=== PATIENT | female | born 1975 | race Caucasian/White ===

== ENCOUNTER 2024-07-31 09:54 | Outpatient (CLI) | payer BC, SELFPAY ==
--- NOTE | 2024-07-31 10:15 | CRLHL7_ITS ---
For Patients: As a result of the 21st Century Cures Act, medical imaging exams and procedure reports are released immediately into your electronic medical record. You may view this report before your referring provider. If you have questions, please contact your health care provider. ULTRASOUND-GUIDED BREAST BIOPSY OF TWO OR MORE SITES AND POST-BIOPSY DIGITAL MAMMOGRAM FOR BIOPSY MARKER PLACEMENT CLINICAL HISTORY: Indeterminate masses. COMPARISON STUDIES: 07/24/2024. TECHNIQUE: Real-time ultrasound with image documentation was used for targeting the breast lesions. A core needle biopsy system was used to obtain core tissue samples with a 16-gauge device. Post-biopsy CC and ML digital mammograms were obtained to document position of the biopsy marker. CONSENT and TIME OUT: The procedure, risks, and alternatives were explained to the patient and a consent was signed. [place] Protocol was followed including pre-procedure verification that relevant information/documentation was available, reviewed and properly matched to the patient; consent accurate and complete; and equipment and supplies available. Time Out was conducted just prior to starting procedure to verify the four required elements: patient identity, correct side/site marked (if applicable), procedure, relevant images/results properly labeled and displayed (if applicable). PROCEDURE: All biopsies were performed in a similar manner. The patient was positioned supine on the ultrasound table. The breast was prepped with ChloraPrep. 10 cc of 1 percent lidocaine used for local anesthesia. Core samples were obtained. A sterile metal biopsy clip was placed percutaneously to stella the lesion position within the breast. The specimens were placed in 10% formalin and sent to the Pathology Department. Pressure was held on the biopsy site until all bleeding subsided. The skin incision was closed with Steri-Strips. An ice pack was positioned over the biopsy site. The patient tolerated the procedure well. Post-biopsy instructions were reviewed with the patient, and a written copy was given to her. SITE A: LATERALITY: LEFT breast. LESION: Solid heterogeneously hypoechoic mass measures 13 x 10 x 11 millimeters at 1 o`clock 2 cm from the nipple. SUSPICION: High. NUMBER OF SAMPLES: 5. BIOPSY CLIP SHAPE: Oval. PROXIMITY OF CLIP TO TARGET: Within/immediately adjacent to the lesion. SITE B: LATERALITY: LEFT breast. LESION: Solid heterogeneously hypoechoic solid mass measures 2.0 x 0.9 x 1.5 cm at 1 o`clock 4 cm from the nipple. SUSPICION: High. NUMBER OF SAMPLES: 6. BIOPSY CLIP SHAPE: HydroMARK. PROXIMITY OF CLIP TO TARGET: Within/immediately adjacent to the lesion. DISTANCE BETWEEN: Sites A and B: 3 millimeters. IMPRESSION: Ultrasound-guided breast biopsy of two or more sites. When the pathology report is available, an addendum to this report will be made. ACR not applicable Dictated by Mason Valderrama MD @ 07/31/2024 11:20:57 AM jj/Dictated by: Mason Valderrama MD @ 07/31/2024 11:20:00 AM (Electronically Signed)
--- NOTE | 2024-07-31 11:00 | CRLHL7_ITS ---
For Patients: As a result of the Cures Act, medical imaging exams and procedure reports are released immediately into your electronic medical record. You may view this report before your referring provider. If you have questions, please contact your health care provider. SEE ULTRASOUND-GUIDED LEFT BREAST BIOPSY PERFORMED SAME DAY CRL:lauro restrepo/Dictated by: Mason Valderrama MD @ 07/31/2024 11:21:00 AM (Electronically Signed)
== END 2024-07-31 09:55 | disposition home or self-care (01) ==
LOC: US 09:55
PROVIDERS: Visit Provider Obstetrics & Gynecology
DX: N63.20 Unspecified lump in the left breast, unspecified quadrant (principal); C50.912 Malignant neoplasm of unspecified site of left female breast
CPT/HCPCS: 19083; 19084; 77065; A4648; A4649

== ENCOUNTER 2024-08-26 07:39 | Day surgery (SDC) | payer BC, SELFPAY ==
[2024-08-26] VITALS (25 sets, daily range): BP systolic 98–140; BP diastolic 50–78; PULSE 87–132; RESP 11–20; TEMP 36.4–37.4; O2SAT 97–100; BMI 22.8
[2024-08-26 08:16] LABS: Hemoglobin* 13.7 gm/dL (12.0-16.0)
[2024-08-26] MEDS: SODIUM CHLORIDE 0.9 % (FLUSH) 10 ML SYRINGE IVF (08:27)
[2024-08-26] MEDS: LACTATED RINGERS 1000 ML 1,000 ML 100 ML IV ×2 (08:27→10:54)
--- NOTE | 2024-08-26 09:00 | CRLHL7_ITS ---
For Patients: As a result of the Century Cures Act, medical imaging exams and procedure reports are released immediately into your electronic medical record. You may view this report before your referring provider. If you have questions, please contact your health care provider. INDICATION: Invasive lobular carcinoma left breast. Injection for sentinel lymph node scintigraphy. FINDINGS: Informed consent was obtained by the on-site staff. The on-site staff discussed the risks and benefits of the procedure. The patient agreed to proceed. Utilizing sterile technique, 0.8 mCi Tc-99m filtered Sulfur Colloid was injected within an intradermal location superolateral to the left nipple areolar complex. The patient tolerated the injection well. No immediate complications were documented. No subsequent imaging. IMPRESSION: Technically successful left breast injection for sentinel lymph node scintigraphy. CHANDLER LEMA MD Diagnostic/Nuclear Medicine Radiologist [email or web address] KALYANI/[facility] bM/Dictated by: Chandler Lema MD @ 08/26/2024 2:57:00 PM (Electronically Signed)
[2024-08-26 09:02] LABS: HCG Qualitative Serum* Negative (Negative)
--- NOTE | 2024-08-26 09:30 | W.PM.H&PU ---
History & Physical Update History & Physical Update H&P Reviewed and patient assessed: No changes noted
--- NOTE | 2024-08-26 10:16 | W.PM.H&PU ---
History & Physical Update History & Physical Update H&P Reviewed and patient assessed: No changes noted
[2024-08-26] MEDS: ISOSULFAN BLUE 5 ML VIAL 3 ML INJECTION (10:41)
[2024-08-26] MEDS: CEFAZOLIN 1 GM inj IVP (10:53)
--- NOTE | 2024-08-26 10:55 | P.ANES_ITS ---
Anesthesia Charges Start Date/Time Anesthesia Start Date: 08/26/24 Anesthesia Start Time: 10:29 Stop Date/Time Anesthesia Stop Date: 08/26/24 Anesthesia Stop Time: 14:19 Coding CPT Codes CPT Codes: ANESTH SURGERY OF SHOULDER - 81223 ([id number]) P1 - NORMAL HEALTHY PATIENT, QK - BOOTH SUPERVISOR 2-4 CNCRNT ANES PROC, QX - PLANT WRAPPER SVC W/ MED DIRECTION
--- NOTE | 2024-08-26 10:55 | W.ANESCHARGE ---
Anesthesia Charges Start Date/Time Anesthesia Start Date: 08/26/24 Anesthesia Start Time: 10:29 Stop Date/Time Anesthesia Stop Date: 08/26/24 Anesthesia Stop Time: 14:19 Coding CPT Codes CPT Codes: ANESTH SURGERY OF SHOULDER - 20162 ([id number]) P1 - NORMAL HEALTHY PATIENT, QK - INSTITUTIONAL RESEARCH DIRECTOR 2-4 CNCRNT ANES PROC, QX - DIRECTOR OF SERVICES SVC W/ MED DIRECTION
--- NOTE | 2024-08-26 11:17 | P.PCN_ITS ---
Procedure Note Time Seen by Provider: 14:22 Date Seen: 08/26/24 Date of procedure: 08/26/[address] [facility] bill your pro fee for this procedure?: Yes Procedure: Preoperative diagnosis: 49 year-old with menorrhagia and suspected polyp on pelvic ultrasound. Postoperative diagnosis: Same Procedure: Hysteroscopy, Dilation and Curettage using the Truclear incisor Anesthesia: Conscious sedation, paracervical block. Surgeon: Araceli Allan MD Senior Physician: None Estimated blood loss: 10 mL Specimen: Endometrial curettings to pathology. Findings: Exam under anesthesia: Uterus: anteverted position, less than 10 week sized, mobile, with no masses or nodularity palpable. Uterus sounded to 9 cm. No adnexal masses or nodularity palpable. On hysteroscopy: at least 1 polypoid mass within the endometrium otherwise the endometrium and tubal ostia appeared normal. Normal appearing cervix with a nabothian cyst. Procedure: Zari was taken to the operating operating room more conscious sedation was found to be adequate. The patient was placed on in the dorsal lithotomy position and an exam under anesthesia was performed with findings stated above. She was then prepped and draped in a normal sterile manner. A bivalve speculum was placed in the vagina. The cervix appears nulliparous. Otherwise no abnormalities. The paracervical block was placed using 0.5% Marcaine, 5 mL was injected at the 4 and 8 o'clock positions on the cervix. The anterior lip of the cervix was grasped with a single-toothed tenaculum. The cervix dilated to Hegar 6. The uterus sounded to 9 cm. The Truclear hysteroscope was advanced into the uterus. A diagnostic hysteroscopy was performed with normal saline as the insufflation medium. Findings are stated above. The Truclear incisor was then advanced through the camera. The curett age was performed with the incisor over an approximately 2 minutes. The incisor was then removed. The endometrial cavity appeared normal. Saline deficit at the end of the procedure 595 mL. Total saline used 1550 mL. Nothing was needed for hemostasis. The hysteroscope, Allis clamp and speculum were removed from the vaginal canal. The patient tolerated the procedure well. Sponge, lap and instrument counts were correct x2 at the end of the procedure. The patient was taken to the recovery area in stable condition.
--- NOTE | 2024-08-26 11:23 | SUR.OPER ---
PATIENT QUESTIONS ANSWERED SATISFACTORILY PREOPERATIVELY. PATIENT BROUGHT TO OR #1 PER CART. Patient positioned supine on OR #1 bed. The perioperative team supported arms bilaterally on arm boards. Final approval of positioning by surgeon.
--- NOTE | 2024-08-26 11:36 | P.ANES_ITS ---
Anesthesia Charges Start Date/Time Anesthesia Start Date: 08/26/24 Anesthesia Start Time: 10:29 Stop Date/Time Anesthesia Stop Date: 08/26/24 Anesthesia Stop Time: 14:19 Coding CPT Codes CPT Codes: ANESTH SURGERY OF SHOULDER - 77450 ([id number]) P1 - NORMAL HEALTHY PATIENT, QK - LEATHER TOOLER 2-4 CNCRNT ANES PROC, QX - PANTOGRAPH ENGRAVER SVC W/ MED DIRECTION
--- NOTE | 2024-08-26 11:36 | W.ANESCHARGE ---
Anesthesia Charges Start Date/Time Anesthesia Start Date: 08/26/24 Anesthesia Start Time: 10:29 Stop Date/Time Anesthesia Stop Date: 08/26/24 Anesthesia Stop Time: 14:19 Coding CPT Codes CPT Codes: ANESTH SURGERY OF SHOULDER - 39301 ([id number]) P1 - NORMAL HEALTHY PATIENT, QK - IN HOME SALES CONSULTANT 2-4 CNCRNT ANES PROC, QX - PHARMACY CLERK SVC W/ MED DIRECTION
--- NOTE | 2024-08-26 11:37 | P.NB_ITS ---
Nerve Block Nerve Block Time Seen by Provider: 10:45 Date Seen: 08/26/24 Type of block requested by surgeon for post-operative analgesia: intercostal and intercostal add on Side: bilateral Time out performed: Yes Verification of patient name: Yes Verification of date of : Yes Site marking: site marked Name of person performing procedure: Anthony Continuous monitoring Was continuous monitoring of O2 sat, B/P, registered nurse cardiac telemetry, recorded every 15 minutes?: Yes Procedure Checklist: sterile prep, needles and gloves Ultrasound guided. Images saved: Yes Medications given in 5ml increments after negative aspiration: Marcaine %: 0.25 mL: 30 and Exparel mL: 20 Needle gauge: 20 Patient tolerated procedure well: Yes Block Charges Block Charge (with Pro Fee): Intercostal Nerve Block (bilateral ) Use of Ultrasound Machine for Block: Yes- US Guidance/pain block
--- NOTE | 2024-08-26 12:05 | SUR.OPER ---
PT. FAMILY UPDATED BY PHONE CALL AT 12:06.
[2024-08-26] MEDS: KETOROLAC 30 MG/ML inj IVP (13:28)
--- NOTE | 2024-08-26 13:37 | PM.GSPRC ---
Operative Note Date of procedure: 08/26/24 Pre-op diagnosis: Invasive lobular carcinoma, left breast Post-op diagnosis: Same Type of Procedure: 1. Injection of radionucleotide tracer 2. Bilateral mastectomy 3. Left sentinel lymph node biopsy Indications: Patient is a 49-year-old female with recent diagnosis invasive lobular carcinoma of the left breast. Please see consultation note regarding full discussion about different treatment options. Risks and benefits of operative intervention were discussed at length with the patient. Risks included but was not limited to: Bleeding, infection, risk of damage to surrounding structures, possible need for additional procedures and postoperative complications such as pneumonia, pulmonary emboli or SC. we also discussed the risk of lymphedema, nerve injury and flap necrosis. All questions and concerns were addressed with the patient agreeing to proceed. Procedure Description: Prior to proceeding to the operating room a radionucleotide tracer was injected into the left periareolar around 1:00 o'clock. A wheal was formed and bandage placed. The patient was then brought to the operating room and prepped and draped in standard sterile fashion. A timeout was taken for patient safety. I injected 3 cc of lymphazurin blue in the patient's left breast. I then performed breast massage for a period of 5 minutes. Starting on the left side, I performed an elliptical incision on the left breast and started by dissecting the subcutaneous tissues using electrocautery. The breast flaps were created circumferentially, dissecting all the breast tissue off of the overlying skin superiorly up to the clavicle, medially to the lateral border of the sternum, laterally out to the latissimus and inferiorly to the inferior aspect of the breast fold. Once flaps had been raised in all 4 directions down to the level of the fascia, the breast was taken off of the chest wall. I included the fascia in my dissection. The underlying pectoralis muscle was inspected and hemostasis was appreciated. The breast was removed through the incision and marked with a stitch at 12:00 o'clock. It was sent to pathology for immediate assessment, with the tumor identified as a palpable mass and all margins negative I then proceeded to take out the sentinel lymph nodes through the mastectomy incision. Using the Neoprobe I identified the sentinel lymph nodes. All nodes were grossly normal. Nodes were passed off the field as sentinel nodes# 1, and#2 for a frozen evaluation. A total of 3 nodes were found within the specimens, all of which came back as no evidence of malignancy. Background counts in the axilla were low. I then proceeded to perform contralateral prophylactic mastectomy in the same fashion. I made an elliptical incision and started by dissecting the subcutaneous tissues using electrocautery. The breast flaps were created circumferentially, dissecting all the breast tissue off of the overlying skin superiorly up to the clavicle, medially to the lateral border of the sternum, laterally out to the latissimus and inferiorly to the inferior aspect of the breast fold. Once flaps had been raised in all 4 directions down to the level of the fascia, the breast was taken off of the chest wall. I included the fascia in my dissection. The breast was removed through the incision and marked with a single stitch at 12:00 o'clock. It was sent to pathology for immediate assessment, where no obvious abnormalities were identified. A 15 [place] DENEEN drain was placed on the right side and left side. Both drains were secured to the skin with 2 nylon. Hemostasis was assured on both sides. On the left side, with the sentinel nodes were removed the clavipectoral fascia was brought together with 3-0 Vicryl. The elliptical incisions were closed in layers of interrupted 3 0 Vicryl and running 4-0 Monocryl. Steri-Strips and sterile dressings were applied. Findings: Left breast invasive lobular carcinoma. Bilateral mastectomy with negative margins on the left and no abnormalities identified on right. Three sentinel nodes removed from left axilla, all negative for metastatic disease. Anesthesia: GETA Surgeon: Fatoumata Wells MD Estimated blood loss (mL): 50 Additional Specimen Information: 1. Left breast 2. [place] lymph node 1 3. [place] lymph node 2 4. Right breast Condition: stable Disposition: PACU [place] Node Biopsy for Breast Cancer Operation Performed with Curative Intent: Yes Tracers used to Identify sentinel nodes in the upfront surgery (non-neoadjuvant) setting: Dye and Radioactive Tracer Tracers used to identify sentinel nodes in the neoadjuvant setting: N/A All nodes (colored or non-colored) present at the end of a dye filled lymphatic channel were removed: Yes All significantly radioactive nodes were removed: Yes All palpably suspicious nodes were removed: Yes Biopsy proven positive nodes marked with clips prior to chemotherapy were identified and removed: Not Applicable
[2024-08-26] MEDS: BUPIVACAINE 0.5% 30 ML 20 ML INJECTION (13:53)
--- NOTE | 2024-08-26 14:54 | SUR.PHASEI ---
patient met discharge criteria per anesthesia
[2024-08-26] MEDS: HYDROmorphone 0.5 mg/0.5 ml inj IVP (15:20)
[2024-08-26] MEDS: HYDROCODONE-ACETAMIN 5-325 MG 1 TAB PO ×2 (17:07→22:13)
[2024-08-26] MEDS: 0.9 % SODIUM CHLORIDE 1000 ml 1,000 ML IV (17:52)
[2024-08-26 19:02] LABS: HGB WITH REFLEX TO FERRITIN 11.3 (12.0-16.0)
[2024-08-26] MEDS: KETOROLAC 15 MG/ML inj IVP (20:02)
--- NOTE | 2024-08-26 22:56 | PC.NURSE ---
Pt pleasant to care for. at bedside. Pt received 1L bolus for tachycardia which was effective. Afebrile. Pain in controlled well with PRN medications and ice, pt reports 2-5/[address] Wells was consulted due to increased output in DENEEN drains and soiled dressing; no new orders, instructed to call if output increases. Gauze around right DENEEN site was saturated at 1800, changed gauze and remains dry at this time. Pt tolerating oral intake well. Ambulated to bathroom with no complaints.
[2024-08-27] MEDS: HYDROCODONE-ACETAMIN 5-325 MG 1 TAB PO ×3 (01:43→10:38)
[2024-08-27 03:35] VITALS: BP 104/55; PULSE 85; RESP 18; TEMP 36.9; O2SAT 99
[2024-08-27] MEDS: KETOROLAC 15 MG/ML inj IVP ×2 (03:38→09:16)
--- NOTE | 2024-08-27 04:51 | PC.NURSE ---
End of shift report [id number]: VS WNL. Afebrile. Denies nausea. Rates pain a 2 and denies pain meds at this time. Upon reassessment pain was rated a 4, pain meds offered and given.?Ice packs applied to bilat mastectomy sites. Bilat DENEEN drains intact and patent. Left arm restriction band in place. IV is SL in R hand. Ambulates SBA. HOB remains elevated. Jay wrap C/D/I, bruising noted on pts right chest, per evening RN MD Wells updated regarding bruising and slight edema. Urine blue this shift due to lymphazurin blue given in surgery. Call light within reach.?
[2024-08-27 06:58] LABS: Hemoglobin* 10.7 gm/dL (12.0-16.0)
[2024-08-27 08:38] VITALS: BP 110/68; PULSE 90; RESP 16; TEMP 37.2; O2SAT 99
[2024-08-27] MEDS: DOCUSATE SODIUM 100 MG CAPSULE PO (09:16)
--- NOTE | 2024-08-27 09:54 | PC.NURSE ---
Education provided to patient and her . Patient has 4 daughters at home who will support patient with drain and incision care. Patients observed how to strip and drain one drain and performed the procedure on the other drain. Original dressings and wrap that were applied in surgery were removed and redressed per Dr. Wells's request. Right side incision and skin surrounding the incision is quite edematous and bruised. Dr. Wells is aware of this. Continue to monitor drainage output. The output has been slowly decreasing in amount. Patient did get light headed and nauseous during the dressing change. Patient laid down and put feet up and was provided a wet washcloth. This resolved within a few minutes. Patient was able to get up and tolerate the rest of the dressing change. Supplies and a record output sheet was provided to patient. All questions were answered and family feels comfortable helping patient at home.
--- NOTE | 2024-08-27 10:43 | PC.NURSE ---
Patient discharged home with family. All belongings sent with patient. All questions answered. Tolerating a regular diet, voiding, passing flatus, pain under control. Drain and incision education provided. Left via wheelchair escort.
== END 2024-08-27 10:55 | disposition home or self-care (01) ==
LOC: MEDSURG 08-27 09:37 → SS 08-27 11:39 → MEDSURG 08-27 11:40
PROVIDERS: Obstetrics & Gynecology; Visit Provider Surgery
PROC: (CPT 19303; principal; 2024-08-26 09:45)
PROC: 0UDB8ZZ Extraction of Endometrium, Via Natural or Artificial Opening Endoscopic (ICD-10-PCS; CPT 58558; 2024-08-26 09:45)
DX: C50.912 Malignant neoplasm of unspecified site of left female breast (principal); N92.0 Excessive and frequent menstruation with regular cycle; G89.18 Other acute postprocedural pain; N84.0 Polyp of corpus uteri
CPT/HCPCS: 19303; 38500; 58558; 01610; 36415; 38792; 64420; 64421; 76942; 81025; 84703; 85018; 86850; 86900; 86901; 88305; 88307; A9270; A9541; C1782; J0330; J0665; J0666; J0690; J1100; J1171; J1200; J1885; J2250; J2405; J2704; J3010; J7030; J7120

== ENCOUNTER 2024-09-25 14:46 | Outpatient (CLI) | payer BC, SELFPAY ==
--- NOTE | 2024-09-25 | CRLHL7_ITS ---
For Patients: As a result of the Century Cures Act, medical imaging exams and procedure reports are released immediately into your electronic medical record. You may view this report before your referring provider. If you have questions, please contact your health care provider. XR DXA Bone Mineral Density (BMD) Reason for exam: Baseline prior to endocrine therapy. Current height (in): 69. Weight (lb): 150. Menopause age: 49. Ethnicity: White. 1. Have you had a previous hip or vertebral fracture? No. 2. Have you had any fractures during your adult life which did not result from significant trauma (e.g., auto accident)? No. 3. Did either of your parents have a hip fracture? No. 4. Do you smoke? No. 5. Have you ever taken Glucocorticoids? No. 6. Do you have rheumatoid arthritis? No. 7. Do you have secondary osteoporosis? No. 8. Do you drink 3 or more alcoholic drinks per day? No. 9. Are you being treated for osteoporosis? No. 10. Have you ever taken any of the following medications: Actonel, Evista, Fosamax, Miacalcin, Reclast, Boniva, Forteo, HRT (i.e. estrogen/hormone therapy), Protelos, Prolia, Vitamin D, Calcium, other ??? please specify. ANSWER: No. 11. Do you have any of the following medical conditions: Anorexia or bulimia, asthma or emphysema, end stage renal disease, hyperparathyroidism, any seizure disorders, cancer, inflammatory bowel diseases, hysterectomy, other ??? please specify. ANSWER: Yes, breast cancer. 12. What was your maximum height (inches)? 69. 13. Do you perform weight bearing exercise regularly? Yes. 14. Do you regularly consume dairy products? Yes. 15. Do you drink caffeinated beverages? Yes. 16. At what age did your period start? 11. 17. Are you premenopausal? No. 18. How many full term pregnancies have you had? 4. 19. Have you ever missed your period for more than 6 months in a row (not including or menopause)? No. TECHNIQUE: Bone mineral density study was performed using the MC10. FINDINGS: The results of the study expressed as bone mineral density (BMD) are as follows: Lumbar spine L1 to L4: BMD: 0.990 g/cm2. T-score: -0.5. Z-score: 0.2. Neck Left: BMD: 0.800 g/cm2. T-score: -0.3. Z-score: 0.4. Right: BMD: 0.774 g/cm2. T-score: -0.7. Z-score: 0.1. Total Left: BMD: 0.919 g/cm2. T-score: -0.2. Z-score: 0.3. Right: BMD: 0.931 g/cm2. T-score: -0.1. Z-score: 0.4. IMPRESSION: Normal bone density. Mason Valderrama M.D. Diagnostic Radiologist [email or web address] bM/Dictated by: Mason Valderrama MD @ 09/25/2024 3:31:00 PM (Electronically Signed)
== END 2024-09-25 14:47 | disposition home or self-care (01) ==
LOC: RAD 14:47
PROVIDERS: Visit Provider Internal Medicine Hematology & Oncology
DX: C50.912 Malignant neoplasm of unspecified site of left female breast (principal)
CPT/HCPCS: 77080; 99202; 99205; 99214; G0463

== ENCOUNTER 2024-09-30 06:55 | Outpatient (CLI) | payer BC, SELFPAY ==
--- NOTE | 2024-09-30 07:15 | CRLHL7_ITS ---
For Patients: As a result of the Cures Act, medical imaging exams and procedure reports are released immediately into your electronic medical record. You may view this report before your referring provider. If you have questions, please contact your health care provider. Indication: left neck lump Technique: Grayscale and color Doppler ultrasound of the left neck soft tissues performed. Comparison: None Findings: Left cervical lymph node is present measuring 13 x 4 x 8 millimeters. Normal internal blood flow. No abscess or shadowing lesion. Impression: Normal-sized left cervical lymph node. Dictated by Mason Valderrama MD @ 09/30/2024 10:16:00 AM (Electronically Signed)
== END 2024-09-30 06:56 | disposition home or self-care (01) ==
LOC: US 06:57
PROVIDERS: Visit Provider Physician Assistant
DX: R59.0 Localized enlarged lymph nodes (principal)
CPT/HCPCS: 76536

== ENCOUNTER 2024-12-22 07:45 | Outpatient (RCR) | payer BC, SELFPAY ==
--- NOTE | 2024-09-18 14:47 | ONC.NURNOTE ---
Call to patient to discuss plan of care. Patient shares that she weighed her two options and would like to try Tamoxifen. She hopes to allow her body to naturally go through the menopause process. Rx for Tamoxifen sent to pharmacy and patient will begin taking it as directed. Dental clearance form obtained. We will plan to start Zometa at her 3 month follow up visit in December. Patient encouraged to call with questions or concerns.
--- NOTE | 2024-09-24 16:12 | ONC.NURNOTE ---
Patient called today with an update on her condition. She states that she was seeing PT/OT today and she shared with them that she was feeling a hard lump in the base of her left neck. They recommended she call oncology and be evaluated. Patient states she has had a lump here for about a year but it has changed over the past few weeks. It is larger and harder. Patient denies any other symptoms. Patient scheduled to see our PA tomorrow for evaluation.
--- NOTE | 2024-10-01 10:02 | ONC.NURNOTE ---
Patient informed of neck US results. Informed it is a normal cervical lymph node. Patient verbalizes understanding.
[2024-12-22 08:20] LABS: Calcium* 9.2 mg/dL (8.4-10.6); Creatinine* 0.7 mg/dL (0.5-1.5); Est. Creatinine Clearance* 96.99; Estimated Glomerular Filt Rate 105 ml/min
[2024-12-22] MEDS: ZOLEDRONIC ACID 4 MG in 0.9 % SODIUM CHLORIDE 100 ml 100 ML 420 MG IVPB (09:09)
== END 2025-03-10 23:59 | disposition home or self-care (01) ==
LOC: CCIC 07:45
PROVIDERS: Clinical Nurse Specialist; Visit Provider Physician Assistant
DX: C50.412 Malignant neoplasm of upper-outer quadrant of left female breast (principal); Z17.0 Estrogen receptor positive status [ER+]; Z90.13 Acquired absence of bilateral breasts and nipples; Z79.810 Long term (current) use of selective estrogen receptor modulators (SERMs); Z79.83 Long term (current) use of bisphosphonates
CPT/HCPCS: 36415; 82310; 82565; 96374; 99202; 99205; 99214; G0463; J3489

== ENCOUNTER 2025-04-27 08:04 | Outpatient (CLI) | payer BC, SELFPAY | END 2025-04-27 08:05 | disposition home or self-care (01) | PROVIDERS: Visit Provider Family Medicine | DX: Z00.00 Encounter for general adult medical examination without abnormal findings (principal); E78.5 Hyperlipidemia, unspecified; Z83.49 Family history of other endocrine, nutritional and metabolic diseases; M35.01 Sjogren syndrome with keratoconjunctivitis; Z11.59 Encounter for screening for other viral diseases | CPT/HCPCS: 80053; 80061; 84443; 86038; 86235; 86803 ==